=== PATIENT | male | born 2000 | race Caucasian/White ===

== ENCOUNTER 2021-05-16 12:42 | Outpatient (REF) | payer SELFPAY ==
--- NOTE | 2021-05-16 10:48 | SKI_PTH ---
PATIENT: Tanika Page LOC: [facility] U#:[id number] AGE/SX: 20/M ROOM: RE05/16/[address]: USHA Chirinos : 2000 BED: DIS: 05/16/2021 SPEC #: [id number] RECD: 05/16/21 13:11 STATUS: AL REPriscilla #: [id number] TAMMY: 05/16/21 10:[address]: Quiana Coley DEPT: Surgical Specimen RECD BY: Mara Hoff ENTERED: 05/16/21 13:12 SP TYPE: FRANCIA ALLRED DR: Savanna Heller Tissues: 1 - SKIN BIOPSY(SHAVE/PUNCH) 2 - SKIN BIOPSY(SHAVE/PUNCH) Procedures: GROSS AND MICRO LEVEL 3 SKIN LEVEL 4 Comments: [id number]
== END 2021-05-16 12:43 | disposition home or self-care (01) ==
LOC: LBN 12:42
PROVIDERS: PCP Nurse Practitioner Family; Referring Provider Physical Therapy Assistant; Visit Provider Physical Therapy Assistant
DX: R23.8 Other skin changes (principal); D17.9 Benign lipomatous neoplasm, unspecified; L72.8 Other follicular cysts of the skin and subcutaneous tissue; D17.1 Benign lipomatous neoplasm of skin and subcutaneous tissue of trunk
CPT/HCPCS: 88304; 88305